=== PATIENT | male | born 1970 | race Caucasian/White ===

== ENCOUNTER 2023-09-17 14:08 | Emergency (ER) | payer OTHER ==
[~2023-09-17] VITALS: Ht 182.9 cm; Wt 103.1 kg
[2023-09-17 14:08] VITALS: TEMP 97.7
[2023-09-17 15:06] LABS: INR 0.99; PARTIAL THROMBOPLASTIN TIME 32.9 SECONDS (24.8-34.2); PROTHROMBIN TIME 12.8 SECONDS (12.5-14.5)
[2023-09-17 15:07] LABS: BASO # 0.1 10^3/uL (0.0-0.2); BASO % 0.8 % (0.0-1.0); EOS # 0.2 10^3/uL (0.0-0.5); EOS % 2.7 % (0.0-3.0); HEMATOCRIT 45.7 % (42.0-52.0); HEMOGLOBIN 16.8 g/dl (13.5-17.5); LYMPH # 1.7 10^3/uL (1.5-5.0); LYMPH % 26.7 % (24.0-44.0); MEAN CORPUSCULAR HEMOGLOBIN 32.7 pg (27.0-33.0); MEAN CORPUSCULAR VOLUME 88.9 fl (80.0-96.0); MONO # 0.5 10^3/uL (0.0-0.8); MONO % 8.5 % (2.0-8.0); NEUTROPHILS # 3.9 10^3/uL (1.5-8.5); NEUTROPHILS % 61.1 % (36.0-66.0); PLATELET COUNT, AUTOMATED 266 10^3/uL (150-450); RED BLOOD COUNT 5.14 10^6/uL (4.30-6.10); WHITE BLOOD COUNT 6.3 10^3/uL (4.0-10.0)
[2023-09-17 15:12] LABS: ALBUMIN 4.1 G/DL (3.2-5.2); BILIRUBIN,DIRECT 0.2 MG/DL (<0.4); BILIRUBIN,TOTAL 0.7 MG/DL (0.3-1.2); CALCIUM LEVEL 9.3 MG/DL (8.5-10.1); CK-MB VALUE MASS 5.3 NG/ML (<3.6); CREATININE FOR GFR 1.41 MG/DL (0.70-1.30); GLOMERULAR FILTRATION RATE 56.6 (>56); POTASSIUM SERUM 4.1 MMOL/L (3.5-5.1)
[2023-09-17 15:16] LABS: THYROID STIMULATING HORMONE 2.147 uIU/ML (0.55-4.78)
[2023-09-17 15:17] LABS: FREE T4 1.49 NG/DL (0.89-1.76)
[2023-09-17 15:18] LABS: MEAN CORPUSCULAR HGB CONC 36.8 g/dl (32.0-36.5)
[2023-09-17 15:19] LABS: MB/CK RELATIVE INDEX 1.06 (< OR =4)
[2023-09-17] MEDS ORDERED: ENAL1TAB46 PO (16:58)
[2023-09-17] MEDS ORDERED: AMLO1TAB25 PO (16:58)
[2023-09-17 17:11] VITALS: BP 158/88; O2SAT 96
[2023-09-17 17:13] VITALS: BP 158/88
[2023-09-17] MEDS: amLODIPine 5 MG TAB PO ONE (17:13)
[2023-09-17] MEDS: ENALAPRIL MALEATE 10 MG TAB PO ONE (17:27)
== END 2023-09-17 17:32 | disposition home or self-care (01) ==
LOC: M ED 14:08
DX: R07.9 Chest pain, unspecified (principal); I10 Essential (primary) hypertension; Z79.899 Other long term (current) drug therapy

== ENCOUNTER → 2024-10-18 | Outpatient (CLI) | payer OTHER ==
[~2024-10-18] MED LIST: AMLO1TAB25 PO; ENAL1TAB46 PO
== END ==
LOC: M WUC 08:59
PROVIDERS: ATTEND Physician Assistant Medical
DX: M25.512 Pain in left shoulder (principal); R07.89 Other chest pain; M19.012 Primary osteoarthritis, left shoulder; M75.32 Calcific tendinitis of left shoulder

== ENCOUNTER 2024-11-23 08:33 | Day surgery (SDC) | payer OTHER ==
[~2024-11-23] VITALS: Ht 182.9 cm; Wt 97.3 kg
[~2024-11-23 08:33] MED LIST changes: +NAPR-855 PO
[2024-11-23] MEDS ORDERED: LIDOCAINE 2% 100 MG/5 ML SDV (FOR ANES.) As Ordered ONE (09:45)
[2024-11-23 10:21] VITALS: TEMP 97.4
[2024-11-23 10:45] VITALS: BP 121/81; O2SAT 96
== END 2024-11-23 10:58 | disposition home or self-care (01) ==
LOC: M OPP 08:33
PROVIDERS: ATTEND Internal Medicine Gastroenterology
DX: Z12.11 Encounter for screening for malignant neoplasm of colon (principal); D12.6 Benign neoplasm of colon, unspecified; K64.0 First degree hemorrhoids; K57.30 Diverticulosis of large intestine without perforation or abscess without bleeding; K22.89 Other specified disease of esophagus; K44.9 Diaphragmatic hernia without obstruction or gangrene; R12 Heartburn; Z79.899 Other long term (current) drug therapy; F17.290 Nicotine dependence, other tobacco product, uncomplicated
CPT/HCPCS: 43239; 45385; 88305; J3010